=== PATIENT | female | born 1955 | race American Indian/Alaskan Native ===

== ENCOUNTER 2016-10-07 13:53 | Outpatient (CLI) | payer MEDICAID | END 2016-10-07 13:54 | disposition home or self-care (01) | DX: R92.8 Other abnormal and inconclusive findings on diagnostic imaging of breast (principal) ==

== ENCOUNTER 2016-10-10 12:37 | Day surgery (SDC) | payer MEDICAID ==
[2016-10-10] MEDS ORDERED: LACTATED RINGERS 1,000 ML IV ONE (14:08)
[2016-10-10] MEDS ORDERED: MIDAZOLAM 2 MG/2 ML VIAL IVP ONE (16:06)
[2016-10-10] MEDS ORDERED: fentaNYL 250 MCG/5 ML VIAL IVP ONE (16:06)
== END 2016-10-10 12:38 | disposition home or self-care (01) ==
PROC: 0DJD8ZZ Inspection of Lower Intestinal Tract, Via Natural or Artificial Opening Endoscopic (ICD-10-PCS; principal; 2016-10-10 12:55)
DX: Z12.11 Encounter for screening for malignant neoplasm of colon (principal); K57.30 Diverticulosis of large intestine without perforation or abscess without bleeding; Z86.010 Personal history of colon polyps; I10 Essential (primary) hypertension; K21.9 Gastro-esophageal reflux disease without esophagitis; K64.8 Other hemorrhoids; K92.1 Melena; F41.8 Other specified anxiety disorders
CPT/HCPCS: 45378; J3010; J7120

== ENCOUNTER 2016-10-11 14:21 | Outpatient (CLI) | payer MEDICAID | END 2016-10-11 14:22 | disposition home or self-care (01) | DX: R92.8 Other abnormal and inconclusive findings on diagnostic imaging of breast (principal) ==

== ENCOUNTER 2016-10-20 14:30 | Outpatient (CLI) | payer MEDICAID | END 2016-10-20 14:31 | disposition home or self-care (01) | DX: I10 Essential (primary) hypertension (principal); R73.9 Hyperglycemia, unspecified ==

== ENCOUNTER 2017-10-12 14:29 | Outpatient (CLI) | payer MEDICAID ==
[2017-10-12 17:42] LABS: BASOPHILS % (AUTO) 0.4 %; EOSINOPHILS # (AUTO) 0.3 10^3/uL (0.0-0.7); EOSINOPHILS % (AUTO) 5.2 %; HGB - HEMOGLOBIN 12.7 g/dL (12.0-16.0); LYMPHOCYTES % (AUTO) 36.8 %; MEAN CORPUSCULAR HGB CONC 32.6 g/dL (32.0-36.0); MEAN CORPUSCULAR VOLUME 91.9 fL (81.0-99.0); MEAN PLATELET VOLUME 7.9 fL (7.9-10.8); MONOCYTES # (AUTO) 0.3 10^3/uL (0.0-1.0); MONOCYTES % (AUTO) 5.7 %; NEUTROPHILS # (AUTO) 2.8 10^3/uL (1.5-6.6); NEUTROPHILS % (AUTO) 51.9 %; PLT - PLATELET COUNT 322 10^3/uL (130-450); RED BLOOD COUNT 4.23 10^6/uL (4.20-5.40); RED CELL DISTRIBUTION WIDTH 13.3 % (12.0-15.0); WHITE BLOOD COUNT 5.3 x10^3/uL (4.8-10.8)
[2017-10-12 18:16] LABS: ALBUMIN/GLOBULIN RATIO 1.4 (1.0-2.2); ALKALINE PHOSPHATASE 118 IU/L (42-121); ALT ALANINE AMINOTRANSFERASE 40 IU/L (10-60); AST ASPARTATE AMINOTRANSFERASE 29 IU/L (10-42); BILIRUBIN,TOTAL 0.5 mg/dL (0.2-1.0); BUN - BLOOD UREA NITROGEN 11 mg/dL (6-20); CALCIUM 8.9 mg/dL (8.5-10.3); CARBON DIOXIDE - CO2 27 mmol/L (21-32); CHLORIDE 103 mmol/L (101-111); CREATININE 0.8 mg/dL (0.4-1.0); GFR - MDRD 73 (>89); GLUCOSE 98 mg/dL (70-100); SODIUM 140 mmol/L (135-145); TOTAL PROTEIN 6.9 g/dL (6.7-8.2)
[2017-10-12 18:20] LABS: HB2 TOTAL 13.7 g/dL; HEMOGLOBIN A1C 0.58 g/dL
== END 2017-10-12 14:30 | disposition home or self-care (01) ==
LOC: LAB.F 14:29
PROVIDERS: ATTEND Physician Assistant Medical
DX: Z00.00 Encounter for general adult medical examination without abnormal findings (principal); R73.01 Impaired fasting glucose
CPT/HCPCS: 36415; 80053; 83036; 84443; 85025

== ENCOUNTER 2017-11-13 14:03 | Outpatient (CLI) | payer MEDICAID ==
[2017-11-13 18:02] LABS: ALBUMIN 4.1 g/dL (3.2-5.5); ALBUMIN/GLOBULIN RATIO 1.3 (1.0-2.2); BILIRUBIN,TOTAL 0.5 mg/dL (0.2-1.0); CALCIUM 9.3 mg/dL (8.5-10.3); CREATININE 0.8 mg/dL (0.4-1.0); TOTAL PROTEIN 7.2 g/dL (6.7-8.2)
== END 2017-11-13 14:04 | disposition home or self-care (01) ==
LOC: LAB.F 14:03
PROVIDERS: ATTEND Physician Assistant Medical
DX: I10 Essential (primary) hypertension (principal)
CPT/HCPCS: 36415; 80053

== ENCOUNTER 2018-02-23 13:05 | Outpatient (CLI) | payer MEDICAID ==
[2018-02-23 18:21] LABS: HB2 TOTAL 14.5 g/dL; HEMOGLOBIN A1C 0.61 g/dL
== END 2018-02-23 13:06 | disposition home or self-care (01) ==
LOC: LAB.F 13:05
PROVIDERS: ATTEND Physician Assistant Medical
DX: R73.01 Impaired fasting glucose (principal)
CPT/HCPCS: 36415; 83036

== ENCOUNTER 2018-05-04 14:56 | Outpatient (CLI) | payer MEDICAID ==
--- NOTE | 2018-05-04 15:43 | XRAY Report ---
Procedure Date: 05/04/2018 Accession Number: [id number] / [id number] Procedure: XR - Wrist 4 View LT CPT Code: FULL RESULT: EXAM: LEFT WRIST RADIOGRAPHY EXAM DATE: 05/04/2018 02:57 PM. CLINICAL HISTORY: Wrist joint pain, left. COMPARISON: None. TECHNIQUE: 3 views. FINDINGS: Bones: Normal. No fractures or bone lesions. Joints: Borderline ulnar negative variance. Soft Tissues: Normal. No soft tissue swelling. IMPRESSION: Question ulnar negative variance. RADIA
== END 2018-05-04 14:57 | disposition home or self-care (01) ==
LOC: DI 14:56
PROVIDERS: ATTEND Physician Assistant Medical
DX: M25.532 Pain in left wrist (principal)

== ENCOUNTER 2018-11-14 08:00 | Outpatient (CLI) | payer MEDICAID ==
[2018-11-14 17:56] LABS: BASOPHILS % (AUTO) 0.2 %; EOSINOPHILS # (AUTO) 0.3 10^3/uL (0.0-0.7); EOSINOPHILS % (AUTO) 3.9 %; HGB - HEMOGLOBIN 13.4 g/dL (12.0-16.0); LYMPHOCYTES # (AUTO) 2.4 10^3/uL (1.5-3.5); LYMPHOCYTES % (AUTO) 36.2 %; MEAN CORPUSCULAR HEMOGLOBIN 29.9 pg (27.0-31.0); MEAN CORPUSCULAR HGB CONC 32.8 g/dL (32.0-36.0); MEAN CORPUSCULAR VOLUME 91.2 fL (81.0-99.0); MEAN PLATELET VOLUME 8.1 fL (7.9-10.8); MONOCYTES # (AUTO) 0.4 10^3/uL (0.0-1.0); MONOCYTES % (AUTO) 5.9 %; NEUTROPHILS # (AUTO) 3.6 10^3/uL (1.5-6.6); NEUTROPHILS % (AUTO) 53.8 %; PLT - PLATELET COUNT 335 10^3/uL (130-450); RED BLOOD COUNT 4.47 10^6/uL (4.20-5.40); RED CELL DISTRIBUTION WIDTH 13.4 % (12.0-15.0); WHITE BLOOD COUNT 6.7 x10^3/uL (4.8-10.8)
[2018-11-14 18:03] LABS: ALBUMIN 4.2 g/dL (3.2-5.5); ALBUMIN/GLOBULIN RATIO 1.4 (1.0-2.2); BILIRUBIN,TOTAL 0.8 mg/dL (0.2-1.0); CALCIUM 9.6 mg/dL (8.5-10.3); CREATININE 0.8 mg/dL (0.4-1.0); TOTAL PROTEIN 7.2 g/dL (6.7-8.2)
== END 2018-11-14 23:59 | disposition home or self-care (01) ==
LOC: LAB.F 08:00
PROVIDERS: ATTEND Physician Assistant Medical
DX: I10 Essential (primary) hypertension (principal)
CPT/HCPCS: 36415; 80053; 85025

== ENCOUNTER 2019-06-02 20:39 | Emergency (ER) | payer MEDICAID ==
[2019-06-02] MEDS ORDERED: MECLIZINE 12.5 MG TABLET PO STA (21:03)
[2019-06-02] MEDS ORDERED: CHERRY SYRUP 10 ML UDC PO ONE (21:03)
[2019-06-02] MEDS ORDERED: DEXAMETHASONE 10 MG/ML VIAL PO STA (21:03)
--- NOTE | 2019-06-02 21:06 | ED Physician Documentation ---
History of Present Illness - Stated complaint Stated Complaint: VERTIGO/NAUSEA - Chief complaint Chief Complaint: Neuro - History obtained from History obtained from: Patient, Friend - History of Present Illness Timing: How many days ago (3) - Additonal information Additional information: 63-year-old female has developed acute dizziness 3 days ago she has dizziness when she turns her head too fast she has more dizziness when she turns her head to the right than the left she is had some nausea and vomiting today her symptoms are worse today than they were 3 days ago. She feels that she needs to be evaluated today and she has had her boyfriend bring her to the emergency department. She states she is vomited twice she has been able to hold fluids down. Review of Systems Constitutional: denies: Fever, Chills, Fatigue Eyes: denies: Decreased vision Ears: reports: Other (Fullness in the left ear prior to onset of symptoms). denies: Ear pain Nose: denies: Rhinorrhea / runny nose, Congestion Throat: denies: Dental pain / toothache, Sore throat Cardiac: denies: Chest pain / pressure, Palpitations Respiratory: denies: Dyspnea, Cough GI: reports: Nausea, Vomiting. denies: Abdominal Pain : denies: Dysuria, Frequency PD PAST MEDICAL HISTORY - Past Medical History Cardiovascular: Hypertension, High cholesterol Respiratory: None Endocrine/Autoimmune: None GI: GERD : None HEENT: Other Psych: Depression Musculoskeletal: None - Present Medications Home Medications: Ambulatory Orders Medication Instructions Recorded Confirmed Acyclovir 400 mg PO BID 10/10/16 10/10/16 Atorvastatin Calcium [Lipitor] 80 mg PO DAILY 10/10/16 10/10/16 Citalopram Hydrobromide [Celexa] 40 mg PO DAILY 10/10/16 10/10/16 Lisinopril 20 mg PO DAILY 10/10/16 10/10/16 Omeprazole [PriLOSEC] 20 mg PO DAILY 10/10/16 10/10/16 hydroCHLOROthiazide 25 mg PO DAILY 10/10/16 10/10/16 [Hydrochlorothiazide] Meclizine [Antivert] 25 mg PO Q6H PRN #20 tablet 06/02/19 - Allergies Allergies/Adverse Reactions: Allergies Allergy/AdvReac Type Severity Reaction Status Date / Time No Known Drug Allergies Allergy Verified 01/23/17 13:45 PD ED PE NORMAL - Vitals Vital signs reviewed: Yes (hypertensive) - General General: Alert and oriented X 3, No acute distress, Well developed/nourished - HEENT HEENT: Atraumatic, PERRL, EOMI, Ears normal, Moist mucous membranes, Pharynx benign, Dentition benign, Other (Nystagmus 3 beats bilaterally and sy mmetrically) - Neck Neck: Supple, no meningeal sign, No bony TTP - Cardiac Cardiac: RRR, No murmur - Respiratory Respiratory: No respiratory distress, Clear bilaterally - Abdomen Abdomen: Soft, Non tender - Back Back: No CVA TTP, No spinal TTP - Derm Derm: Normal color, Warm and dry, No rash - Extremities Extremities: No deformity, No edema - Neuro Neuro: Alert and oriented X 3, greens laborer 2-12 intact, No motor deficit, No sensory deficit, Normal speech Eye Opening: Spontaneous Motor: Obeys Commands Verbal: Oriented GCS Score: 15 - Psych Psych: Normal mood, Normal affect Results - Vitals Vitals: Vital Signs - 24 hr 06/02/19 20:43 Temperature 36.4 C L Heart Rate 81 Respiratory 18 Rate Blood Pressure 132/79 H O2 Saturation 100 Oxygen O2 Source Room air Procedures - IVC sono (time) 2100 Bedside IVC sono: IVC measures (cm) (1.34), Dehydration (less than one liter deficit) PD MEDICAL DECISION MAKING - ED course Complexity details: reviewed results, re-evaluated patient, considered differential, d/w patient, d/w family ED course: 63-year-old female with bilateral nystagmus dizziness nausea and vomiting without propelling vertigo appears to have acute labyrinthitis and she is adm inistered meclizine 25 mg orally and dexamethasone 10 mg orally.We will provide the patient instructions on modified Nba maneuver as well.The patient does have some dehydration and she is able to hold down oral fluids. Her dehydration is mild on interrogation of her inferior vena cava. Departure - Departure Disposition: 01 Home, Self Care Clinical Impression: Labyrinthitis Qualifiers: Laterality: bilateral Qualified Code(s): H83.03 - Labyrinthitis, bilateral Condition: Stable Instructions: ED Labyrinthitis Follow-Up: Olivia Abdul PA-C [Primary Care Provider] - Prescriptions: Meclizine [Antivert] 25 mg PO Q6H PRN #20 tablet PRN Reason: Dizziness
[2019-06-02 21:56] VITALS: BP 115/78
== END 2019-06-02 21:58 | disposition home or self-care (01) ==
LOC: ED 20:39
DX: H83.03 Labyrinthitis, bilateral (principal); R11.2 Nausea with vomiting, unspecified; E86.0 Dehydration; I10 Essential (primary) hypertension
CPT/HCPCS: 99282; 99284; A9270

== ENCOUNTER 2019-09-09 15:38 | Outpatient (CLI) | payer MEDICAID ==
[2019-09-09 17:25] LABS: ALBUMIN 4.1 g/dL (3.2-5.5); ALBUMIN/GLOBULIN RATIO 1.5 (1.0-2.2); BILIRUBIN,TOTAL 0.6 mg/dL (0.2-1.0); CALCIUM 9.2 mg/dL (8.5-10.3); CREATININE 0.8 mg/dL (0.4-1.0); TOTAL PROTEIN 6.9 g/dL (6.7-8.2)
[2019-09-09 17:47] LABS: HB2 TOTAL 12.4 g/dL; HEMOGLOBIN A1C 0.57 g/dL; HEMOGLOBIN A1C % 6.4 % (4.6-6.2)
== END 2019-09-09 15:39 | disposition home or self-care (01) ==
LOC: LAB.S 15:38
PROVIDERS: ATTEND Physician Assistant Medical
DX: R73.01 Impaired fasting glucose (principal)
CPT/HCPCS: 36415; 80053; 83036

== ENCOUNTER 2020-04-09 12:49 | Outpatient (CLI) | payer MEDICAID ==
--- NOTE | 2020-04-09 13:17 | CT Report ---
PROCEDURE: HEAD WO INDICATIONS: Dizziness, vertigo TECHNIQUE: Noncontrast 4.5 mm thick angled axial sections acquired from the foramen magnum to the vertex. For r adiation dose reduction, the following was used: automated exposure control, adjustment of mA and/or kV according to patient size. COMPARISON: None. FINDINGS: Image quality: Excellent. CSF spaces: Basal cisterns are patent. No extra-axial fluid collections. Ventricles are normal in size and shape. Brain: No midline shift. No intracranial masses or hemorrhage. Farfan-white matter interface is norm al. Skull and face: Calvarium and visualized facial bones are intact, without suspicious lesions. Sinuses: Visualized sinuses and mastoids are clear. IMPRESSION: No acute intracranial finding. Reviewed by: Abel Haskins MD on 04/09/2020 1:15 PM PDT Approved by: Abel Haskins MD on 04/09/2020 1:15 PM PDT Station ID: [id number]
== END 2020-04-09 12:50 | disposition home or self-care (01) ==
LOC: DI 12:49
PROVIDERS: ATTEND Registered Nurse
DX: H81.20 Vestibular neuronitis, unspecified ear (principal)
CPT/HCPCS: 70450

== ENCOUNTER 2020-04-21 14:50 | Outpatient (CLI) | payer MEDICAID ==
[2020-04-21 16:02] VITALS: BP 118/80
--- NOTE | 2020-04-21 16:02 | SLEEP CARE CONSULTATION ---
Information from patient questionnaire entered by Red Galeana. I have reviewed and concur with the information entered by Red Galeana. This document represents the service I personally performed and the decisions made by me, Faiza Jones ARNP. History of Present Illness Service Date and Time: 04/21/2020 1450 Reason for Visit: New patient Chief Complaint: reports: Insomnia, Unrefreshed sleep, Snoring, Excessive daytime sleepiness, Observed pauses in breathing, Fatigue, Frequent awakenings at night, Other (Hard time awakening daily) Duration of Symptoms: Years Usual bedtime: 12 AM - 3 AM or not at all Time it takes to fall asleep: Several hours Snores at night: Yes Observed to quit breathing while asleep: Yes Sleeps alone due to snoring: Yes Number of times waking at night: 4 Reasons for waking at night: reports: Choking, Snoring, Bathroom, Other (jerk when going to sleep or waking up occasionally). denies: Gasping for air, Pain Toss, Turn, or Twitch while sleeping: Yes Recalls having dreams: Yes Usually gets out of bed at: Noon or later Feels refreshed in the morning: No Morning headache: Yes (sometimes, 3-4 days a week; last about hour and resolves with caffiene) Sleepy or fatigued during the day: Yes Ever fallen asleep while driving: Yes (dozing off on long trips, audio books helped to stay awake) Takes day naps: Yes (30 minutes to several hours) Dreams during day naps: No Prior sleep studies: No Additional HPI information: Patient presents with complaints of insomnia, she cannot get to sleep before 2- 3 in the morning if she is able to go to sleep. She has frequent awakenings and awakens very tired every day. She sleeps until afternoon, sometimes as much as 12-14 hours but states she never feels rested. Her significant other has told her she snores loudly and does not sleep in the same room. He has also told her she has pauses in breathing, jerky movements of her hands when going to sleep and has sometimes woke up with a jerk. She states she has been dealing with vertigo for about the last year and complains of being foggy minded. She used to hike/walk 2 miles a day but is not unable to due to the vertigo. She saw a neurologist for the vertigo and he recommended physical therapy which she was doing but stopped when her boyfriend started having seizures. She know she has gained some weight due to decrease in activity. Her s/o is going to have bariatric surgery and they are planning a diet change to help him (and her) lose weight. - Parasomnia Symptoms Ever been unable to move upon waking from sleep: No Walks in sleep: No Talks in sleep: No (when a kid, not recently) Ever acted out dreams in sleep: Yes Ever felt weak in the knees when startled or emotional: No Bothered by creepy, crawly, restless sensations in legs: Yes (hands and feet twitch during sleep; restless feeling in legs 2-3 times a wk) Problems with memory or concentration: Yes Subjective Initial [place] Sleepiness Scale score: 12 (in 2019) Past Medical History Past Medical History: reports: Hypertension (gastroesophageal reflux), Arthritis, Depression, GERD. denies: Congestive Heart Failure, Diabetes (possibly pre-diabetic), Stroke, Coronary Heart Disease, Insulin resistance, Arrythmia, Hypothyroidism, Anemia, Anxiety, Asthma, Mood disorder, Attention deficit Social History The patient's occupation is a retired. Patient is Single and lives in [place]. Have you smoked in the past 12 months: No Alcohol use: Yes Alcohol amount and frequency: 3-4 times a year-rarely Caffeine use: Yes Caffeine amount and frequency: 1 stay awake tablet (OTC tablet of caffiene) daily Family History Family history of sleep disordered breathing: Yes (Father) Family Hx Sleep Apnea: Father: Snoring Allergies and Home Medications Drug allergies reviewed: Yes (NKDA) Home medication list reviewed: Yes (see list) Review of Systems Cardiovascular: reports: high blood pressure. denies: palpitations, chest pain, irregular heart rate or pulse, leg or foot swelling, have to sleep sitting up Respiratory: reports: chronic cough (from post nasal drip). denies: shortness of breath Gastrointestinal: reports: heartburn. denies: difficulty swallowing Neurological: reports: headaches, gait or balance problems. denies: seizure, head trauma, disorientation, speech dysfunction Psychiatric: reports: depression. denies: anxiety, mood disorder, claustrophobia Ear/Nose/Throat: reports: nasal congestion (allergies), dry mouth/throat (only when she snores), wisdom teeth removed, other (post nasal drip). denies: sinus problems, nose bleeds, hoarseness, injury to nose, tonsillectomy Endocrine: reports: sluggishness, excessive thirst. denies: thyroid disease Musculoskeletal: reports: joint pain, neck pain, back pain Immunologic: reports: allergies to food or environment (seasonal) Physical Exam Blood Pressure: 118/80 Cuff size: long Heart Rate: 74 O2 Saturation: 100 Height: 5 ft 5 in Weight: 187 lb 12.8 oz Body Mass Index: 31.2 BMI Classification: Obese Neck circumference: 16 (inches) HEENT: No craniofacial malformation Nostrils: patent to airflow Turbinates: normal Septum: midline Mouth and throat: normal Uvula visualization: 50% Mallampati Class II Tongue: normal in size Tonsils: small Chin and jaw: normal size and position Neck: normal w/o lymphadenopathy or thyromegaly Heart: regular rate and rhythm Lungs: clear bilaterally Impression and Plan 1. Suspected Obstructive Sleep Apnea-Hypopnea Syndrome, as suggested by a history of loud and irregular snoring, observed cessation of breath while asleep, gasping or choking in sleep, morning headache, frequent awakening during the night, unrefreshed sleep, cognitive impairment, and excessive daytime sleepiness. Narrow oropharynx and obesity are common predisposing factors for obstructive sleep apnea-hypopnea syndrome. Patient also has a history of hyp ertension and depression. I recommend proceeding to polysomnography to confirm the diagnosis and to assess severity. If the patient has significant sleep disordered breathing, a manual CPAP titration study will also be performed to find the optimal treatment pressure. I informed the patient of what the sleep studies involve and after some discussion, obtained agreement to proceed. The pathophysiology of obstructive sleep apnea-hypopnea syndrome was discussed with the patient and health risks of cardiovascular and cerebrovascular disease if not treated. AASM brochure for obstructive sleep apnea-hypopnea syndrome given and reviewed. Risks of drowsy driving discussed in detail and patient advised to avoid long distance driving and to cost recovery technician at the first sign of drowsiness. Patient agreed to plan. * Schedule polysomnography +- manual CPAP titration study. * Avoid long distance driving or driving when feeling sleepy. * Avoid alcohol, sedative and muscle relaxant around bedtime. * Attempt to lose weight. * Review instructions provided by trained office staff on how to prepare for the sleep study. * Return for follow-up after sleep study completed. Visit Type: In Office Time Spent with Patient (minutes): 37 Provider Statement: I spent 100% of the Face to Face Visit with the patient with greater than 50% spent counseling the patient and coordination of care.
== END 2020-04-21 14:51 | disposition home or self-care (01) ==
LOC: SC 14:50
PROVIDERS: ATTEND Nurse Practitioner Family
DX: G47.10 Hypersomnia, unspecified (principal); R06.83 Snoring; R06.81 Apnea, not elsewhere classified; R53.83 Other fatigue; G47.8 Other sleep disorders; E66.9 Obesity, unspecified; Z68.31 Body mass index [BMI] 31.0-31.9, adult; I10 Essential (primary) hypertension
CPT/HCPCS: 99204; 99212

== ENCOUNTER 2020-05-19 10:18 | Outpatient (CLI) | payer MEDICAID ==
[2020-05-19 15:29] LABS: CALCIUM 10.2 mg/dL (8.5-10.3); CREATININE 0.8 mg/dL (0.4-1.0)
[2020-05-19 20:29] LABS: HEMOGLOBIN A1c% 6.1 % (4.27-6.07)
== END 2020-05-19 10:19 | disposition home or self-care (01) ==
LOC: LAB.S 10:18
PROVIDERS: ATTEND Registered Nurse
DX: R73.01 Impaired fasting glucose (principal)
CPT/HCPCS: 36415; 80048; 83036

== ENCOUNTER 2020-06-03 20:30 | Outpatient (CLI) | payer MEDICAID | END 2020-06-03 23:59 | disposition home or self-care (01) | LOC: SC 20:30 | PROVIDERS: ATTEND Nurse Practitioner Family | DX: G47.33 Obstructive sleep apnea (adult) (pediatric) (principal) | CPT/HCPCS: 95806 ==

== ENCOUNTER 2020-06-18 16:28 | Outpatient (CLI) | payer MEDICAID ==
--- NOTE | 2020-06-18 16:54 | SLEEP CARE CONSULTATION ---
Information from patient questionnaire entered by Red Galeana. I have reviewed and concur with the information entered by Red Galeana. This document represents the service I personally performed and the decisions made by me, Faiza Jones ARNP. History of Present Illness Service Date and Time: 06/18/20201627 Initial [place] Sleepiness Scale score: 12 (in 2020) Current [place] Sleepiness Scale score: 8 Additional HPI information: VIKKI SCHNEIDER returns for follow up and results of the recently performed home sleep study. She was found to have mild obstructive sleep apnea with an average AHI 7.8 and a nick oxygen saturation of 69.3%. Her supine AHI was 21.1 and her non-supine AHI was 5.1. I explained the pathophysiology behind obstructive sleep apnea. We then spent quite a bit of time discussing different treatment options. For mild obstructive sleep apnea, surgery and oral appliance are alternatives to nasal CPAP therapy but in moderate or severe cases, nasal CPAP is the most effective and reliable treatment. Because apnea is primarily in supine position, then positional management therapy could be effective. Methods discussed such as positioning with pillows, using a T-shirt with tennis balls in the back, and sh own commercial products that have a pillow format on back to prevent supine sleep. I reviewed the impact of weight changes on sleep apnea and strongly recommended losing weight. After some discussion, the patient opted to go with the nasal CPAP therapy. Nasal autoCPAP set at 4-15 cmH20 will be ordered with rationale explained. A manual titration study will be ordered if unable to find optimal pressure with office adjustments. I explained how CPAP machine works with sample devices [employer] Dream[employer] and [id number] and what to expect when using the machine. Using CPAP every night in order to get used to it was emphasized. Patient advised to put CPAP mask on before getting into bed so as not to fall asleep without CPAP. To assist acclimation to CPAP use, it could also be used for a short time during day while reading or watching TV. The patient was instructed to call the CPAP supplier to discuss any mechanical problem that may occur. If the mask given is uncomfortable or is difficult to keep on through the night even with adjustment, contact the CPAP supplier as many will replace with another mask style if notified before 30 days. If snoring or perceives is not getting enough air or too much air from the machine, notify this office. AASM patient education PAP tips reviewed and given to patient. Patient counseled not drink alcohol less than 4 hours before bedtime as it can increase snoring and apnea. Patient was cautioned about risks of drowsy driving until sleepiness symptoms resolve. Sleep Study - Results Type of Sleep Study: Home sleep study Prior sleep studies: No Polysomnography/Home Sleep Study results: SLEEP TIME AND EFFICIENCY: The sleep study recording began at 03:56:25 AM and ended at 12:22:04 PM. Total recording time was 505.6 minutes. The total sleep time was 451.5 minutes. The sleep efficiency was 89.3 percent. The patient spent 76.6 minutes supine, and spent 374.9 minutes non-supine. The patients own estimate of sleep time was 8.40 hours. RESPIRATORY DATA: The AHI in this report is indexed to sleep time based on actigraphy. The AASM defines this as MELLISA. The AHI on this type 3 Home Sleep Study may understate the AHI determined on a type 1 or 2 study, since EEG is not monitored resulting in the inability to score non-desaturating hypopneas. Based on 4% Calculation: The AHI 4% calculation of 7.8 per hour of recording time was based on a total of 14 scored apneas and 45 scored hypopneas with 4% desaturations. Supine AHI4%: 21.1 per hour. Non-supine AHI4%: 5.1 per hour. Oxygen Summary: Patient's baseline O2 saturation was 95.2 %. The patient spent 3.7 minutes at an oxygen saturation less than 90%, and 1.2 minutes less than 85%. The desaturation index was 11.2 events per hour sleep time. The lowest saturation was 69.3 %. SNORING: The percent of the study time spent snoring was 0.0 %. The Snoring Count was 0 . The Snoring Index was 0.0 . PULSE RATE REVIEW: The mean heart rate was 67 beats per minute. The rate ranged from a low of 40 to a high of 92 beats per minute. DIAGNOSIS CODE: Obstructive sleep apnea (ICD-10 G47.33) This patient has mild obstructive sleep apnea associated with mild hypoxemia. Allergies and Home Medications Known drug allergies: No Home medication list reviewed: Yes (no changes) Review of Systems Review of systems same as previous: Yes (no changes) Weight loss over past 5 years: 25 in last 3 months Physical Exam Heart Rate: 82 O2 Saturation: 98 Height: 5 ft 5 in Weight: 175 lb Body Mass Index: 29.1 BMI Classification: Overweight Impression and Plan 1. Obstructive Sleep Apnea-Hypopnea Syndrome, mild, with lowest oxygen saturation of 69.3%. Obviously this is the cause of the patients symptoms of unrefreshed sleep, and excessive daytime sleepiness. Positive pressure therapy could benefit her hypertension, acid reflux, depression and reduce risk of diabetes. As mentioned above, the patient will be started on nasal autoCPAP therapy with pressure set at 4-15 cmH2O. A manual titration study will be completed if unable to find optimal treatment pressure with office adjustments. Compliance guidelines also reviewed. A copy of compliance guidelines will be given for reference at check out. Because the apnea is more severe supine, I instructed to avoid sleeping supine using pillow positioning until able to start CPAP use. * Nasal auto CPAP therapy, pressure at 4-15 cm H2O. * Attempt to lose weight. * Avoid alcohol consumption near bedtime. * Avoid supine sleep until using CPAP. * The patient is again cautioned about driving until sleepiness completely resolves. * Return one month after CPAP obtained. I will assess response to therapy and compliance at that time. Counseling Topics: Weight loss health impact Visit Type: In Office Time Spent with Patient (minutes): 23 Provider Statement: I spent 100% of the Face to Face Visit with the patient with greater than 50% spent counseling the patient and coordination of care.
== END 2020-06-18 16:29 | disposition home or self-care (01) ==
LOC: SC 16:28
PROVIDERS: ATTEND Nurse Practitioner Family
DX: G47.33 Obstructive sleep apnea (adult) (pediatric) (principal); E66.3 Overweight; Z68.29 Body mass index [BMI] 29.0-29.9, adult
CPT/HCPCS: 99212; 99213

== ENCOUNTER 2020-06-23 08:00 | Outpatient (CLI) | payer MEDICAID | END 2020-06-23 23:59 | disposition home or self-care (01) | LOC: LAB.R 08:00 | PROVIDERS: ATTEND Physician Assistant | DX: N39.0 Urinary tract infection, site not specified (principal); R30.0 Dysuria | CPT/HCPCS: 87086 ==

== ENCOUNTER 2020-08-26 14:46 | Outpatient (CLI) | payer MEDICAID ==
--- NOTE | 2020-08-26 15:14 | SLEEP CARE CONSULTATION ---
Information from patient questionnaire entered by Gayle Florez. I have reviewed and concur with the information entered by Gayle Florez. This document represents the service I personally performed and the decisions made by me, Faiza Jones ARNP. History of Present Illness Service Date and Time: 08/26/2020 1446 Previous diagnosis: Mild, Obstructive Sleep Apnea-Hypopnea Syndrome AHI: 7.8 (in 2019) Reason for follow up: first compliance Equipment type: CPAP Equipment obtained from: [employer] (has received first supplies, feels they are doing really good) Mask style: Nasal (over the nose) Backup mask available: No (will keep mask when replaced later) Last cushion change: 2 weeks Prior sleep studies: Yes Year and Where: 2019 - [facility] Sleep Type of Sleep Study: Home sleep study HPI additional information: VIKKI SCHNEIDER was diagnosed to have mild, AHI 7.8, obstructive sleep apnea- hypopnea syndrome and returned today for CPAP therapy first compliance follow- up. CPAP Compliance Data - Data Reviewed with Patient Average duration of nightly device use: 9 hr 9 min Compliance rate %: 93 Current pressure setting (cmH2O): 4-15 Humidity settin Average residual AHI: 0.5 Central apnea: 0.3 Obstructive apnea: 0.2 Subjective Missed days of use due to: reports: illness, other (power outage) Patient concerns: reports: nasal congestion, dry mouth, nose, throat. denies: aerophagia, mask discomfort, air blowing in eyes, mask leak noise, condensation in mask/hose, epistaxis, other Observed to snore while using device: No Current pressure setting perceived as: comfortable On therapy, patient: reports: sleeping better, awakening more refreshed, being more awake and alert during the day, more rested overall. denies: drowsiness while driving Initial [place] Sleepiness Scale score: 12 (in 2020) Current [place] Sleepiness Scale score: 7 Allergies and Home Medications Drug allergies reviewed: Yes (NKDA) Home medication list reviewed: Yes (no changes) Review of Systems Review of systems same as previous: Yes (no changes) Physical Exam Heart Rate: 74 O2 Saturation: 100 Height: 5 ft 5 in Weight: 179 lb Body Mass Index: 29.7 BMI Classification: Overweight Impression and Plan 1. Obstructive Sleep Apnea-Hypopnea Syndrome, mild, with good treatment compliance and excellent apnea control. On CPAP therapy, the patient has better sleep quality and is more rested overall. She has had some nasal congestion and oral dryness. Nasal congestion can be reduced with increasing the CPAP humidity as shown on sample device. The heated hose can be adjusted higher if condensation with higher humidity setting. Saline nasal spray sample was also given to use prior to CPAP to clear nasal secretions and wash off any nasal allergens to facilitate nasal breathing. In addition, a steamy shower before bed will often assist nasal drainage. Increasing the humidity will also reduce the oral/nasal dryness. I will adjust her pressure to 7-13 cm H2O to reflect the pressures of the median at 7.5 cm H2O, 95% average 12.8 cm H2O and max pressure at 13.9 cm H2O. Patient's apnea severity and rationale for treatment to reduce apnea, improve sleep quality and reduce cardiovascular and cerebrovascular events was reviewed. I also reviewed the benefit of consistent device use of CPAP for hypertension, gastric reflux, and depression. * Change autoCPAP pressure to 7-13 cmH2O * Notify me if snoring with mask or feeling that the pressure is too much or too little * Attempt to lose weight * Call this office if any problems using CPAP * Return for follow up in 1-2 months , or sooner if concerns arise Counseling Topics: Spare mask, Weight loss health impact Visit Type: In Office Time Spent with Patient (minutes): 20 Provider Statement: I spent 100% of the Face to Face Visit with the patient with greater than 50% spent counseling the patient and coordination of care.
== END 2020-08-26 14:47 | disposition home or self-care (01) ==
LOC: SC 14:46
PROVIDERS: ATTEND Nurse Practitioner Family
DX: G47.33 Obstructive sleep apnea (adult) (pediatric) (principal); E66.3 Overweight; Z68.29 Body mass index [BMI] 29.0-29.9, adult
CPT/HCPCS: 99212; 99213

== ENCOUNTER 2020-08-28 14:51 | Outpatient (CLI) | payer MEDICAID ==
[2020-08-28 19:53] LABS: BASOPHILS % (AUTO) 0.3 %; EOSINOPHILS # (AUTO) 0.2 10^3/uL (0.0-0.7); HGB - HEMOGLOBIN 12.6 g/dL (12.0-16.0); LYMPHOCYTES # (AUTO) 1.9 10^3/uL (1.5-3.5); LYMPHOCYTES % (AUTO) 28.6 %; MEAN CORPUSCULAR HEMOGLOBIN 29.5 pg (27.0-31.0); MEAN CORPUSCULAR HGB CONC 31.3 g/dL (32.0-36.0); MEAN CORPUSCULAR VOLUME 94.4 fL (81.0-99.0); MEAN PLATELET VOLUME 9.7 fL (7.9-10.8); MONOCYTES # (AUTO) 0.3 10^3/uL (0.0-1.0); MONOCYTES % (AUTO) 4.9 %; NEUTROPHILS # (AUTO) 4.2 10^3/uL (1.5-6.6); NEUTROPHILS % (AUTO) 63.1 %; PLT - PLATELET COUNT 356 10^3/uL (130-450); RED BLOOD COUNT 4.27 10^6/uL (4.20-5.40); RED CELL DISTRIBUTION WIDTH 13.2 % (12.0-15.0); WHITE BLOOD COUNT 6.7 x10^3/uL (4.8-10.8)
[2020-08-28 20:23] LABS: ALBUMIN 4.4 g/dL (3.2-5.5); ALBUMIN/GLOBULIN RATIO 1.5 (1.0-2.2); ALKALINE PHOSPHATASE 130 IU/L (42-121); ALT ALANINE AMINOTRANSFERASE 44 IU/L (10-60); AST ASPARTATE AMINOTRANSFERASE 27 IU/L (10-42); BILIRUBIN,TOTAL 0.8 mg/dL (0.2-1.0); BUN - BLOOD UREA NITROGEN 21 mg/dL (6-20); CALCIUM 9.8 mg/dL (8.5-10.3); CARBON DIOXIDE - CO2 28 mmol/L (21-32); CHLORIDE 101 mmol/L (101-111); CHOL/HDL RATIO 3.2 (<4.4); CHOLESTEROL 131 mg/dL; CREATININE 0.7 mg/dL (0.4-1.0); GLUCOSE 105 mg/dL (70-100); HDL CHOLESTEROL 41 mg/dL; LDL CHOLESTEROL,CALCULATED 68 mg/dL; LDL/HDL RATIO 1.7 (<4.4); SODIUM 140 mmol/L (135-145); TOTAL PROTEIN 7.3 g/dL (6.7-8.2); VLDL CHOLESTEROL 22 mg/dL
== END 2020-08-28 14:52 | disposition home or self-care (01) ==
LOC: LAB.S 14:51
PROVIDERS: ATTEND Registered Nurse
DX: R73.01 Impaired fasting glucose (principal); K21.9 Gastro-esophageal reflux disease without esophagitis; F34.1 Dysthymic disorder; E78.00 Pure hypercholesterolemia, unspecified; I10 Essential (primary) hypertension; N39.0 Urinary tract infection, site not specified; R30.0 Dysuria
CPT/HCPCS: 36415; 80053; 80061; 83721; 84443; 85025; 87086

== ENCOUNTER 2020-09-30 12:46 | Outpatient (CLI) | payer MEDICAID ==
--- OUTSIDE RECORDS SUMMARY | 2020-09-30 12:50 | EXTERNAL MEDICAL SUMMARY RPT | Continuity of Care Document ---
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 2020-08-18 00:00:00 LIPID SCREEN, FASTING [facility] 2020-08-18 00:00:00 TSH [facility] 2020-08-18 00:00:00 CBC W/Diff/Plt [facility] 2020-08-28 14:51 PURE HYPERCHOLESTEROLEMIA, [facility] UNSPECIFIED 2020-08-28 14:51 DYSTHYMIC DISORDER [facility] 2020-08-28 14:51 ESSENTIAL (PRIMARY) [facility] HYPERTENSION 2020-08-28 14:51 GASTRO-ESOPHAGEAL REFLUX [facility] DISEASE WITHOUT ESOPHAGITIS 2020-08-28 14:51 IMPAIRED FASTING GLUCOSE [facility] Allergies date description facility No Known Drug Allergies [facility] Medications date description facility 2020-07-21 00:00:00 [facility] 2020-07[facility]21 [facility] OMEPRAZOLE [facility] 2020-07-21 00:00:00 OMEPRAZOLE [facility] Procedures date description facility 2020-08-18 00:00:00 TSH WITH REFLEX TO FT4 [facility] date description facility 2020-08-18 00:00:[address] [facility] date description facility 2020-08-18 00:00:00 LIPID SCREEN, FASTING [facility] date description facility 2020-08-18 00:00:00 TSH [facility] date description facility 2020-08-18 00:00:00 CBC W/Diff/Plt [facility] date description facility 2020-08-18 00:00:00 [facility] Results Social History date description facility [id number]
--- NOTE | 2020-09-30 13:36 | SLEEP CARE CONSULTATION ---
Information from patient questionnaire entered by Gayle Florez. I have reviewed and concur with the information entered by Gayle Florez. This document represents the service I personally performed and the decisions made by , Faiza Jones ARNP. History of Present Illness Service Date and Time: 09/30/2020 1246 Previous diagnosis: Mild, Obstructive Sleep Apnea-Hypopnea Syndrome AHI: 7.8 (in 2019) Reason for follow up: one month Equipment type: CPAP Equipment obtained from: [employer] (getting supplies as needed) Mask style: Nasal ([place]) Backup mask available: Yes (other mask) Last cushion change: 1 month Prior sleep studies: Yes Year and Where: 2019 - [facility] Type of Sleep Study: Home sleep study HPI additional information: VIKKI SCHNEIDER was diagnosed to have mild, AHI 7.8, obstructive sleep apnea- hypopnea syndrome and returned today for CPAP therapy one month pressure change follow-up. CPAP Compliance Data - Data Reviewed with Patient Average duration of nightly device use: 9 hr 22 min Compliance rate %: 97 Current pressure setting (cmH2O): 7-13 Humidity settin Average residual AHI: 0.9 Central apnea: 0.6 Obstructive apnea: 0.1 Subjective Missed days of use due to: reports: other (power outage) Patient concerns: reports: mask discomfort (wants to try a nasal pillows mask, is working with DME to get with next shipment of supplies), air blowing in eyes (only with certain movements), dry mouth, nose, throat. denies: aerophagia, mask leak noise, condensation in mask/hose, nasal congestion, epistaxis Observed to snore while using device: No Current pressure setting perceived as: comfortable On therapy, patient: reports: sleeping better, being more awake and alert during the day, more rested overall. denies: drowsiness while driving Initial [place] Sleepiness Scale score: 12 (in 2020) Current [place] Sleepiness Scale score: 7 Allergies and Home Medications Drug allergies reviewed: Yes (NKDA) Home medication list reviewed: Yes (no changes) Review of Systems Review of systems same as previous: Yes (no changes) Physical Exam Heart Rate: 66 O2 Saturation: 99 Height: 5 ft 5 in Weight: 184 lb Body Mass Index: 30.6 BMI Classification: Obese Impression and Plan 1. Obstructive Sleep Apnea-Hypopnea Syndrome, mild, with good treatment compliance and excellent apnea control. On CPAP therapy, the patient has better sleep quality and is more rested overall. She continues to have mouth dryness in the morning but finds herself sleeping with her mouth open. Her humidity is set at 6 on her machine. I advised her to increase the humidity setting by 1. Oral dryness can be reduced by adjusting humidity setting higher or heated hose lower or by adjusting both settings. Verbal instructions given on how to change humidity and heated hose settings with rationale explaining why to change. I also talked to patient about using a chin strap to train her to keep her mouth closed while sleeping. She is not sure she is willing to put another strap on her head at this time and will think about this and try other ways to keep her mouth closed while asleep. She still wants to try the nasal pillows mask but was unable to obtain one due to her DME being out of the style she needed. She was encouraged to call them back before her next shipment of supplies to request the nasal pillow style mask in her size. Patient's apnea severity and rationale for treatment to reduce apnea, improve sleep quality and reduce cardiovascular and cerebrovascular events was reviewed. I also reviewed the benefit of consistent device use of CPAP for hypertension, gastric reflux and depression. * Continue auto CPAP pressure at 7-13 cmH2O * Patient will talk to DME about changing to nasal pillows mask * Notify me if snoring with mask or feeling that the pressure is too much or too little * Continue to lose weight * Call this office if any problems using CPAP * Return for follow up in 3 months, or sooner if concerns arise Counseling Topics: Spare mask, Weight loss health impact Visit Type: In Office Time Spent with Patient (minutes): 25 Provider Statement: I spent 100% of the Face to Face Visit with the patient with greater than 50% spent counseling the patient and coordination of care.
== END 2020-09-30 12:47 | disposition home or self-care (01) ==
LOC: SC 12:46
PROVIDERS: ATTEND Nurse Practitioner Family
DX: G47.33 Obstructive sleep apnea (adult) (pediatric) (principal); E66.9 Obesity, unspecified; Z68.30 Body mass index [BMI] 30.0-30.9, adult
CPT/HCPCS: 99212; 99213

== ENCOUNTER 2020-12-30 12:34 | Outpatient (CLI) | payer MEDICAID ==
--- NOTE | 2020-12-30 13:18 | SLEEP CARE CONSULTATION ---
Information from patient questionnaire entered by Gayle Florez. I have reviewed and concur with the information entered by Gayle Florez. This document represents the service I personally performed and the decisions made by , Faiza Jones ARNP. History of Present Illness Service Date and Time: 12/30/2020 1234 Previous diagnosis: Mild, Obstructive Sleep Apnea-Hypopnea Syndrome AHI: 7.8 (in 2019) Reason for follow up: three month Equipment type: CPAP Equipment obtained from: [employer] (getting supplies as able) Mask style: Nasal Backup mask available: No (will keep old mask when replaced) Last cushion change: she rotates several mask cushions daily Prior sleep studies: Yes Year and Where: 2019 - [facility] Sleep Type of Sleep Study: Home sleep study HPI additional information: VIKKI SCHNEIDER was diagnosed to have mild, AHI 7.8, obstructive sleep apnea- hypopnea syndrome and returned today for CPAP therapy three month follow-up. CPAP Compliance Data - Data Reviewed with Patient Average duration of nightly device use: 9 hr 17 minutes Compliance rate %: 98 (90 days) Current pressure setting (cmH2O): 7-13 Humidity settin Average residual AHI: 2.7 Subjective Patient concerns: reports: aerophagia (very little), mask leak noise (when turning). denies: mask discomfort, air blowing in eyes, nasal congestion, dry mouth, nose, throat, epistaxis, other Observed to snore while using device: No Current pressure setting perceived as: too high On therapy, patient: reports: sleeping better, awakening more refreshed, being more awake and alert during the day, more rested overall. denies: drowsiness while driving Initial [place] Sleepiness Scale score: 12 (in 2019) Current [place] Sleepiness Scale score: 6 Allergies and Home Medications Home medication list reviewed: Yes (Scopolamine for vertigo) Review of Systems Review of systems same as previous: Yes (no changes) Physical Exam Heart Rate: 67 O2 Saturation: 92 Height: 5 ft 5 in Weight: 170 lb Body Mass Index: 28.3 BMI Classification: Overweight Impression and Plan 1. Obstructive Sleep Apnea-Hypopnea Syndrome, mild, with excellent treatment compliance and good apnea control. On CPAP therapy, the patient has better sleep quality and is more rested overall. She is feeling like the pressure is too much and has some aerophagia/burping in the morning. To reduce symptoms of aerophagia, the CPAP pressure will be reduced to 9-11 cmH2O. Patient advised to contact me if this does not reduce symptoms or if pressure change uncomfortable. Patient's apnea severity and rationale for treatment to reduce apnea, improve sleep quality and reduce cardiovascular and cerebrovascular events was reviewed. I also reviewed the benefit of consistent device use of CPAP for hypertension, gastric reflux, and depression. * Change auto CPAP pressure to 9-11 cmH2O * Notify me if snoring with mask or feeling that the pressure is too much or too little * Attempt to lose weight * Call this office if any problems using CPAP * Return for follow up in 1-2 months, or sooner if concerns arise Counseling Topics: Spare mask, Weight loss health impact Visit Type: In Office Time Spent with Patient (minutes): 20 Provider Statement: I spent 100% of the Face to Face Visit with the patient with greater than 50% spent counseling the patient and coordination of care.
== END 2020-12-30 12:35 | disposition home or self-care (01) ==
LOC: SC 12:34
PROVIDERS: ATTEND Nurse Practitioner Family
DX: G47.33 Obstructive sleep apnea (adult) (pediatric) (principal); E66.3 Overweight; Z68.28 Body mass index [BMI] 28.0-28.9, adult
CPT/HCPCS: 99212; 99213

== ENCOUNTER 2021-02-09 14:27 | Outpatient (CLI) | payer MEDICAID ==
--- NOTE | 2021-02-09 14:52 | SLEEP CARE CONSULTATION ---
Information from patient questionnaire entered by Gayle Florez. I have reviewed and concur with the information entered by Gayle Florez. This document represents the service I personally performed and the decisions made by , Faiza Jones ARNP. History of Present Illness Service Date and Time: 02/09/2021 1420 Previous diagnosis: Mild, Obstructive Sleep Apnea-Hypopnea Syndrome AHI: 7.8 (in 2019) Reason for follow up: other (6 week with pressure change) Equipment type: CPAP Equipment obtained from: [employer] (getting supplies as able) Mask style: Nasal Mask brand: Resmed Backup mask available: Yes (old mask) Last cushion change: 2 days ago Prior sleep studies: Yes Year and Where: 2019 - [facility] Sleep Type of Sleep Study: Home sleep study HPI additional information: VIKKI SCHNEIDER was diagnosed to have mild, AHI 7.8, obstructive sleep apnea- hypopnea syndrome and returns via Telehealth visit today for CPAP therapy 6 week pressure change follow-up. CPAP Compliance Data - Data Reviewed with Patient Average duration of nightly device use: 8 hr 52 min Compliance rate %: 95 (42 days) Current pressure setting (cmH2O): 9-11 (median 10.4, avg 11.0) Humidity settin Average residual AHI: 2.7 Subjective Patient concerns: reports: mask leak noise (only when mouth open). denies: aerophagia, mask discomfort, air blowing in eyes, condensation in mask/hose, edmond al congestion, dry mouth, nose, throat, epistaxis, other Observed to snore while using device: No Current pressure setting perceived as: too high On therapy, patient: reports: sleeping better, awakening more refreshed, being more awake and alert during the day, more rested overall. denies: drowsiness while driving Initial [place] Sleepiness Scale score: 12 (in 2020) Current [place] Sleepiness Scale score: 5 Allergies and Home Medications Home medication list reviewed: Yes (no new meds) Review of Systems Review of systems same as previous: Yes (no changes) Physical Exam Vital signs obtained and entered by: Telehealth visit to reduce exposure during Covid pandemic Height: 5 ft 5 in Impression and Plan 1. Obstructive Sleep Apnea-Hypopnea Syndrome, mild, with good treatment compliance and good apnea control. On CPAP therapy, the patient has better sleep quality and is more rested overall. She feels like the pressure is too high. I will adjust pressure to 9-10 cmH2O and have her follow up in 1-2 months to recheck. She has tried the chinstrap but is still having trouble with mouth venting of air and her mouth coming open. I advised a wider chinstrap to cup the chin and help to keep mouth closed. I also discussed with her trying a full face mask but patient would like to wait until her insurance changes next month before trying to get more supplies. Patient's apnea severity and rationale for treatment to reduce apnea, improve sleep quality and reduce cardiovascular and cerebrovascular events was reviewed. I also reviewed the benefit of consistent device use of CPAP for hypertension, gastric reflux and depression. * Change auto CPAP pressure to 9-10 cmH2O * Notify me if snoring with mask or feeling that the pressure is too much or too little * Attempt to lose weight * Call this office if any problems using CPAP * Return for follow up in 1-2 months, or sooner if concerns arise Counseling Topics: Spare mask, Weight loss health impact Visit Type: Telehealth Video Video Type: VSee Patient Location: Home Location of Provider: Office Patient agrees and consents to this telehealth visit type: Yes Time Spent with Patient (minutes): 21 Provider Statement: I spent 100% of the Telehealth Video Call with the patient with greater than 50% spent counseling the patient and coordination of care.
== END 2021-02-09 14:28 | disposition home or self-care (01) ==
LOC: SC 14:27
PROVIDERS: ATTEND Nurse Practitioner Family
DX: G47.33 Obstructive sleep apnea (adult) (pediatric) (principal)

== ENCOUNTER 2021-03-23 15:29 | Outpatient (CLI) | payer MEDICAID ==
[2021-03-23 19:58] LABS: CALCIUM 9.5 mg/dL (8.5-10.3); CREATININE 0.7 mg/dL (0.4-1.0); POTASSIUM 3.9 mmol/L (3.5-5.0)
[2021-03-23 20:51] LABS: ESTIMATED AVERAGE GLUCOSE 123 mg/dL (70-100); HEMOGLOBIN A1c% 5.9 % (4.27-6.07)
== END 2021-03-23 15:30 | disposition home or self-care (01) ==
LOC: LAB.S 15:29
PROVIDERS: ATTEND Registered Nurse
DX: R73.03 Prediabetes (principal)
CPT/HCPCS: 36415; 80048; 83036

== ENCOUNTER 2021-04-13 14:00 | Outpatient (CLI) | payer MEDICAID ==
--- NOTE | 2021-04-13 14:15 | SLEEP CARE CONSULTATION ---
Information from patient questionnaire entered by Gayle Florez. I have reviewed and concur with the information entered by Gayle Florez. This document represents the service I personally performed and the decisions made by me, Faiza Jones ARNP. History of Present Illness Service Date and Time: 04/13/2021 1400 Previous diagnosis: Mild, Obstructive Sleep Apnea-Hypopnea Syndrome AHI: 7.8 (in 2019) Reason for follow up: other (2 month) Equipment type: CPAP Equipment obtained from: [employer] (getting supplies as needed) Mask style: Nasal pillows Backup mask available: Yes (old mask) Last cushion change: a while Prior sleep studies: Yes Year and Where: 2019 - [facility] Type of Sleep Study: Home sleep study HPI additional information: VIKKI SCHNEIDER was diagnosed to have mild, AHI 7.8, obstructive sleep apnea- hypopnea syndrome and returns via Telehealth visit today for CPAP therapy 2 month pressure change follow-up. CPAP Compliance Data - Data Reviewed with Patient Average duration of nightly device use: 8 hr 45 in Compliance rate %: 95 (60 days) Current pressure setting (cmH2O): 9-10 Humidity settin Average residual AHI: 1.8 Subjective Patient concerns: reports: mask leak noise, dry mouth, nose, throat (when mouth comes open), other (oral venting; chin didn't help). denies: aerophagia, mask discomfort, air blowing in eyes, condensation in mask/hose, nasal congestion, epistaxis Observed to snore while using device: No Current pressure setting perceived as: comfortable On therapy, patient: reports: sleeping better (more adequate sleep in less time), awakening more refreshed, being more awake and alert during the day, more rested overall. denies: drowsiness while driving Initial [place] Sleepiness Scale score: 12 (in 2020) Current [place] Sleepiness Scale score: 4 Allergies and Home Medications Drug allergies reviewed: Yes (NKDA) Home medication list reviewed: Yes (meloxicam for arthritis, haven't taken yet; off HCTZ) Review of Systems Review of systems same as previous: Yes (no changes) Physical Exam Vital signs obtained and entered by: Telehealth visit to reduce exposure during Covid pandemic Height: 5 ft 5 in Weight change since last visit: lost 40 pounds over last 1.5 year Impression and Plan 1. Obstructive Sleep Apnea-Hypopnea Syndrome, mild, with good treatment compliance and good apnea control. On CPAP therapy, the patient has better sleep quality and is more rested overall. Patient very satisfied with her current treatment since she is sleeping less and feeling rested. Her current pressure setting is comfortable. She feels a new mask is comfortable and working better for her. She just changed insurance and we will get that changed information from her upon checkout today. Patient has lost 40 pounds over the last year and a half due to changes that she made in her diet. She no longer needs her blood pressure medication and this was discontinued recently. Patient encouraged to continue to try to lose weight. Patient voiced understanding and agreement with plan of care. Patient's apnea severity and rationale for treatment to reduce apnea, improve sleep quality and reduce cardiovascular and cerebrovascular events was reviewed. I also reviewed the benefit of consistent device use of CPAP for hypertension, gastric reflux, and depression. * Continue auto CPAP pressure at 9-10 cmH2O * Notify me if snoring with mask or feeling that the pressure is too much or too little * Continue to try to lose weight * Call this office if any problems using CPAP * Return for follow up in 6 months, or sooner if concerns arise Counseling Topics: Spare mask, Weight loss health impact Visit Type: Telehealth Video Video Type: VSee Patient Location: Home Location of Provider: Office Patient agrees and consents to this telehealth visit type: Yes Patient agrees to have their insurance billed: Yes Time Spent with Patient (minutes): 17 Provider Statement: I spent 100% of the Telehealth Video Call with the patient with greater than 50% spent counseling the patient and coordination of care.
== END 2021-04-13 14:01 | disposition home or self-care (01) ==
LOC: SC 14:00
PROVIDERS: ATTEND Nurse Practitioner Family
DX: G47.33 Obstructive sleep apnea (adult) (pediatric) (principal)

== ENCOUNTER 2021-06-16 14:17 | Outpatient (CLI) | payer MEDICAID ==
[2021-06-16 20:02] LABS: BASOPHILS % (AUTO) 0.2 %; EOSINOPHILS # (AUTO) 0.4 10^3/uL (0.0-0.7); EOSINOPHILS % (AUTO) 5.8 %; HCT - HEMATOCRIT 44.1 % (37.0-47.0); HGB - HEMOGLOBIN 13.9 g/dL (12.0-16.0); LYMPHOCYTES # (AUTO) 2.1 10^3/uL (1.5-3.5); LYMPHOCYTES % (AUTO) 34.7 %; MEAN CORPUSCULAR HEMOGLOBIN 29.9 pg (27.0-31.0); MEAN CORPUSCULAR HGB CONC 31.5 g/dL (32.0-36.0); MEAN CORPUSCULAR VOLUME 94.8 fL (81.0-99.0); MEAN PLATELET VOLUME 9.7 fL (7.9-10.8); MONOCYTES # (AUTO) 0.3 10^3/uL (0.0-1.0); NEUTROPHILS # (AUTO) 3.3 10^3/uL (1.5-6.6); PLT - PLATELET COUNT 340 10^3/uL (130-450); RED BLOOD COUNT 4.65 10^6/uL (4.20-5.40); RED CELL DISTRIBUTION WIDTH 12.7 % (12.0-15.0)
[2021-06-16 20:19] LABS: ALBUMIN 4.4 g/dL (3.2-5.5); ALBUMIN/GLOBULIN RATIO 1.6 (1.0-2.2); ALKALINE PHOSPHATASE 102 IU/L (42-121); ALT ALANINE AMINOTRANSFERASE 40 IU/L (10-60); AST ASPARTATE AMINOTRANSFERASE 22 IU/L (10-42); BILIRUBIN,TOTAL 0.7 mg/dL (0.2-1.0); BUN - BLOOD UREA NITROGEN 14 mg/dL (6-20); CALCIUM 9.5 mg/dL (8.5-10.3); CARBON DIOXIDE - CO2 26 mmol/L (21-32); CHLORIDE 103 mmol/L (101-111); CHOL/HDL RATIO 3.1 (<4.4); CHOLESTEROL 118 mg/dL; CREATININE 0.7 mg/dL (0.4-1.0); GFR - MDRD 85 (>89); GLUCOSE 97 mg/dL (70-100); HDL CHOLESTEROL 38 mg/dL; LDL CHOLESTEROL,CALCULATED 51 mg/dL; LDL/HDL RATIO 1.3 (<4.4); POTASSIUM 4.1 mmol/L (3.5-5.0); SODIUM 137 mmol/L (135-145); TOTAL PROTEIN 7.2 g/dL (6.7-8.2); TRIGLYCERIDES 143 mg/dL; VLDL CHOLESTEROL 29 mg/dL
[2021-06-16 20:20] LABS: CREATININE,URINE 168.7 mg/dL; MICROALBUM/CREATININE RATIO,UR 2.4 ug/mg (<30.0); MICROALBUMIN,URINE 0.4 mg/dL (0-300.0)
[2021-06-16 20:32] LABS: THYROID STIMULATING HORMONE 1.93 uIU/mL (0.34-5.60)
[2021-06-16 21:23] LABS: ESTIMATED AVERAGE GLUCOSE 123 mg/dL (70-100); HEMOGLOBIN A1c% 5.9 % (4.27-6.07)
== END 2021-06-16 14:18 | disposition home or self-care (01) ==
LOC: LAB.S 14:17
PROVIDERS: ATTEND Registered Nurse
DX: G47.33 Obstructive sleep apnea (adult) (pediatric) (principal); R73.03 Prediabetes; R73.01 Impaired fasting glucose; E78.00 Pure hypercholesterolemia, unspecified; I10 Essential (primary) hypertension
CPT/HCPCS: 36415; 80050; 80061; 82043; 82570; 83036; 83721

== ENCOUNTER 2021-10-06 15:08 | Outpatient (CLI) | payer MEDICAID ==
[2021-10-06 20:06] LABS: BASOPHILS % (AUTO) 0.2 %; EOSINOPHILS # (AUTO) 0.5 10^3/uL (0.0-0.7); EOSINOPHILS % (AUTO) 8.2 %; HCT - HEMATOCRIT 37.8 % (37.0-47.0); HGB - HEMOGLOBIN 12.4 g/dL (12.0-16.0); LYMPHOCYTES # (AUTO) 2.3 10^3/uL (1.5-3.5); LYMPHOCYTES % (AUTO) 36.4 %; MEAN CORPUSCULAR HEMOGLOBIN 30.5 pg (27.0-31.0); MEAN CORPUSCULAR HGB CONC 32.8 g/dL (32.0-36.0); MEAN CORPUSCULAR VOLUME 92.9 fL (81.0-99.0); MEAN PLATELET VOLUME 9.4 fL (7.9-10.8); MONOCYTES # (AUTO) 0.3 10^3/uL (0.0-1.0); NEUTROPHILS # (AUTO) 3.2 10^3/uL (1.5-6.6); NEUTROPHILS % (AUTO) 49.9 %; PLT - PLATELET COUNT 305 10^3/uL (130-450); RED BLOOD COUNT 4.07 10^6/uL (4.20-5.40); RED CELL DISTRIBUTION WIDTH 12.8 % (12.0-15.0); WHITE BLOOD COUNT 6.4 x10^3/uL (4.8-10.8)
[2021-10-06 20:21] LABS: ALBUMIN 4.2 g/dL (3.2-5.5); ALBUMIN/GLOBULIN RATIO 1.5 (1.0-2.2); ALKALINE PHOSPHATASE 107 IU/L (42-121); ALT ALANINE AMINOTRANSFERASE 40 IU/L (10-60); AST ASPARTATE AMINOTRANSFERASE 24 IU/L (10-42); BILIRUBIN,TOTAL 0.8 mg/dL (0.2-1.0); BUN - BLOOD UREA NITROGEN 17 mg/dL (6-20); CALCIUM 9.5 mg/dL (8.5-10.3); CARBON DIOXIDE - CO2 26 mmol/L (21-32); CHLORIDE 103 mmol/L (101-111); CHOL/HDL RATIO 2.8 (<4.4); CHOLESTEROL 124 mg/dL; CREATININE 0.6 mg/dL (0.4-1.0); GFR - MDRD 101 (>89); GLUCOSE 94 mg/dL (70-100); HDL CHOLESTEROL 45 mg/dL; LDL CHOLESTEROL,CALCULATED 56 mg/dL; LDL/HDL RATIO 1.2 (<4.4); SODIUM 137 mmol/L (135-145); TRIGLYCERIDES 117 mg/dL; VLDL CHOLESTEROL 23 mg/dL
[2021-10-06 20:32] LABS: THYROID STIMULATING HORMONE 2.09 uIU/mL (0.34-5.60)
== END 2021-10-06 15:09 | disposition home or self-care (01) ==
LOC: LAB.S 15:08
PROVIDERS: ATTEND Registered Nurse
DX: I10 Essential (primary) hypertension (principal); H81.10 Benign paroxysmal vertigo, unspecified ear; F32.A Depression, unspecified; G47.33 Obstructive sleep apnea (adult) (pediatric); R73.03 Prediabetes; R73.01 Impaired fasting glucose; K21.9 Gastro-esophageal reflux disease without esophagitis; E78.00 Pure hypercholesterolemia, unspecified
CPT/HCPCS: 36415; 80050; 80061; 83721

== ENCOUNTER 2021-10-13 14:17 | Outpatient (CLI) | payer MEDICAID ==
[2021-10-13 14:57] VITALS: BP 112/67
--- NOTE | 2021-10-13 14:57 | SLEEP CARE CONSULTATION ---
Information from patient questionnaire entered by Gudelia Murray MA. I have reviewed and concur with the information entered by Gudelia Murray MA. This document represents the service I personally performed and the decisions made by , Faiza Jones ARNP. History of Present Illness Service Date and Time: 10/13/2021 1417 Previous diagnosis: Mild, Obstructive Sleep Apnea-Hypopnea Syndrome AHI: 7.8 (in 2019) Reason for follow up: six month Equipment type: CPAP Equipment obtained from: [employer] (getting supplies as needed) Mask style: Nasal pillows Backup mask available: Yes (old mask) Last cushion change: 1 week ago Prior sleep studies: Yes Year and Where: 2019 - [facility] Type of Sleep Study: Home sleep study HPI additional information: VIKKI SCHNEIDER was diagnosed to have mild, AHI 7.8, obstructive sleep apnea- hypopnea syndrome and returned today for CPAP therapy six month follow-up. Sleep Study - Results Type of Sleep Study: Home sleep study Prior sleep studies: Yes Year and Where: 2019 - [facility] CPAP Compliance Data - Data Reviewed with Patient Average duration of nightly device use: 8 HOURS 27 MINUTES Compliance rate %: 91 Current pressure setting (cmH2O): 9-10 Average residual AHI: 1.5 Central apnea: 1.1 Obstructive apnea: 0.2 Average large leak: 15.2 Subjective Missed days of use due to: reports: other (power outages) Patient concerns: reports: nasal congestion (ongoing PND), dry mouth, nose, throat. 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) Initial [place] Sleepiness Scale score: 12 (in 2019) Current [place] Sleepiness Scale score: 6 (2021) Allergies and Home Medications Known drug allergies: No Drug allergies reviewed: Yes (scopolomine - skin rash (eczema)) Home medication list reviewed: Yes Physical Exam Vital signs obtained and entered by: Margret MURRAY CMA AAMA Blood Pressure: 112/67 (LEFT, PULSE 77) Heart Rate: 76 O2 Saturation: 98 (WITH N95) Height: 5 ft 5 in Weight: 160 lb (WITH CLOTHES) Weight change since last visit: 20 lb loss since last December Body Mass Index: 26.6 BMI Classification: Overweight Impression and Plan 1. Obstructive Sleep Apnea-Hypopnea Syndrome, mild, with good treatment compliance and good apnea control. On CPAP therapy, the patient has better sleep quality and is more rested overall. She change her diet to complement what her partner had to do after bariatric surgery and she started to lose weight. Patient has lost about 40 pounds over the last year and would like to be re- evaluated to see if she still needs to use a CPAP. I will order a home study and follow up with her after the sleep study is completed. Patient's apnea severity and rationale for treatment to reduce apnea, improve sleep quality and reduce cardiovascular and cerebrovascular events was reviewed. I also reviewed the benefit of consistent device use of CPAP for hypertension, gastric reflux and depression. * Continue auto CPAP pressure at 9-10 cmH2O * HST * Notify me if snoring with mask or feeling that the pressure is too much or too little * Continue to try to lose weight * Call this office if any problems using CPAP * Return for follow up after the sleep study is completed, or sooner if concerns arise Counseling Topics: Spare mask, Weight loss health impact Visit Type: In Office Time Spent with Patient (minutes): 20 Provider Statement: I spent 100% of the Face to Face Visit with the patient with greater than 50% spent counseling the patient and coordination of care.
== END 2021-10-13 14:18 | disposition home or self-care (01) ==
LOC: SC 14:17
PROVIDERS: ATTEND Nurse Practitioner Family
DX: G47.33 Obstructive sleep apnea (adult) (pediatric) (principal)
CPT/HCPCS: 99212; 99213

== ENCOUNTER 2021-10-19 15:01 | Outpatient (CLI) | payer MEDICAID | END 2021-10-19 15:02 | disposition home or self-care (01) | LOC: SC 15:01 | PROVIDERS: ATTEND Nurse Practitioner Family | DX: G47.33 Obstructive sleep apnea (adult) (pediatric) (principal) | CPT/HCPCS: 95806 ==

== ENCOUNTER 2021-11-09 13:43 | Outpatient (CLI) | payer MEDICAID ==
--- NOTE | 2021-11-09 14:25 | SLEEP CARE CONSULTATION ---
Information from patient questionnaire entered by Gudelia Murray MA. I have reviewed and concur with the information entered by Gudelia Murray MA. This document represents the service I personally performed and the decisions made by , Faiza Jones ARNP. History of Present Illness Service Date and Time: 11/09/2021 1343 Initial [place] Sleepiness Scale score: 12 (in 2019) Current [place] Sleepiness Scale score: 4 (2021) Additional HPI information: VIKKI SCHNEIDER returns for follow up and results of the recently performed home sleep study. The patient was informed of the following findings: No significant sleep disordered breathing with an average AHI of 2.4 and nick oxygen saturation of 90%. Patient did not sleep supine during the study so supine sleep disordered breathing cannot be ruled out. I explained the pathophysiology behind obstructive sleep apnea. Patient does not have sleep apnea and was advised how weight gain could increase the risk of developing sleep apnea in the future. I strongly encouraged the patient to try to lose weight. Patient has light snoring. Snoring can be reduced by weight loss. Weight loss is best achieved with diet consult. Patient instructed to contact PCP for referral. Snoring can also be treated with an oral appliance from a dentist. Advised to check insurance coverage. In addition, an ENT evaluation can be do to see if other treatment is indicated. Patient does not drink alcohol. Patient was cautioned about risks of drowsy driving until sleepiness symptoms resolve. Patient denies drowsy driving. Sleep Study - Results Type of Sleep Study: Home sleep study (F/U HOMESTUDY) Prior sleep studies: Yes Year and Where: 2019 - [facility] Polysom[facility]/Home Sleep Study results: Physician Impression: The quality of the study is good. The length of the study is adequate (> 240 minutes). Please also see the tabulated and graphic data. 1. No significant sleep disordered breathing, with an AHI of 2.4/hr and nick SaO2 of 90%. During the study, the patient had 9 apneas (9 obstructive, 0 central, 0 mixed) and 15 hypopneas. The longest episode lasted 153.5 seconds. The patient did not sleep supine during this study (supine AHI was 0.0 and non-supine, 2.51). Recommendation: No treatment is necessary. However, because the patient did not sleep supine during this study, significant sleep disordered breathing during supine sleep cannot be ruled out. If the suspicion for sleep-disordered breathing remains high, an in-laboratory polysomnography should be ordered. Allergies and Home Medications Known drug allergies: Yes Drug allergies reviewed: Yes Home medication list reviewed: Yes (no changes) Allergy and home medication list: Allergies No Known Drug Allergies Allergy (Verified 10/10/16 13:45) Review of Systems Review of systems same as previous: Yes (no changes) Physical Exam Vital signs obtained and entered by: Margret MURRAY CMA AASHERMAN Blood Pressure: 129/83 (RIGHT, 67 PULSE, RESP 14, ) Heart Rate: 66 O2 Saturation: 98 (N95 MASK) Height: 5 ft 5 in Weight: 164 lb (W/O CLOTHES) Weight change since last visit: 4 lb gain Body Mass Index: 27.3 BMI Classification: Overweight Impression and Plan 1. Obstructive Sleep Apnea-Hypopnea Syndrome, mild. On CPAP therapy, the patient has better sleep quality and is more rested overall. Patient here for follow-up of home study to recheck average AHI. Her average AHI was 2.4 but she did not sleep supine during the study. After much discussion, patient would like to continue with her CPAP since we do not have a measurement of her on her back. I discussed with her compliance requirements and reviewed with her that she should sleep on her side if she is not using her CPAP. Patient is requesting a little less pressure on her CPAP. I will adjust it to 8-9 cmH2O for patient comfort. I reviewed her last therapy report which showed residual AHI of 1.5 with pressure set at 9-10 cmH2O. Patient's apnea severity and rationale for treatment to reduce apnea, improve sleep quality and reduce cardiovascular and cerebrovascular events was reviewed. I also reviewed the benefit of consistent device use of CPAP for hypertension, gastric reflux and depression. 2. Overweight, unspecified. Patient has gained weight. Currently patients BMI is 27.3. Obesity increases the risk of apnea, CPAP pressure requirements and overall health risks especially cardiovascular and diabetes. Thus patient is advised to continue to try to lose weight. Weight loss can be done with reducing portion size, reducing refined foods and balancing content with vegetables, fruit and whole grain foods. In addition, patient encouraged to get regular exercise. The patient's CPAP pressure range should accommodate some weight loss. Symptoms to report for additional pressure adjustment discussed. * Continue CPAP therapy * Change auto CPAP pressure to 8-9 cmH2O * Notify me if snoring with mask or feeling that the pressure is too much or too little * Continue to try to lose weight * Call this office if any problems using CPAP * Return for follow up in 1 year, or sooner if concerns arise Counseling Topics: Sleeping position, Weight loss health impact, Weight control Visit Type: In Office Time Spent with Patient (minutes): 21 Provider Statement: I spent 100% of the Face to Face Visit with the patient with greater than 50% spent counseling the patient and coordination of care.
[2021-11-09 14:26] VITALS: BP 129/83
== END 2021-11-09 13:44 | disposition home or self-care (01) ==
LOC: SC 13:43
PROVIDERS: ATTEND Nurse Practitioner Family
DX: G47.33 Obstructive sleep apnea (adult) (pediatric) (principal); E66.3 Overweight
CPT/HCPCS: 99212; 99213

== ENCOUNTER 2022-03-17 09:40 | Outpatient (CLI) | payer OTHER ==
--- NOTE | 2022-03-17 10:26 | XRAY Report ---
PROCEDURE: Lumbar Spine 2 View INDICATIONS: LOW BACK PAIN TECHNIQUE: 2 views of the lumbar spine were acquired. COMPARISON: None. FINDINGS: Bones: 5 [id number] vertebrae are present. There is normal bony alignment. There are multilev el degenerative changes. Facet arthrosis throughout the lumbar spine. Grade 1 anterolisthesis of L4-5 and L5-S1. Sacroiliac joints are normal. Mild leftward curvature of the thoracolumbar spine with the apex at L1. [place] angle is 6 degrees. No vertebral body compression fractures. No suspicious bony le sions. Soft tissues: Overlying bowel gas pattern is normal. No suspicious soft tissue calcifications. IMPRESSION: 1. Facet arthrosis and degenerative changes of the lumbar spine with grade 1 anterolisthesis of L4-5 and L5-S1. 2. No acute traumatic abnormality. Line 3. Leftward curvature of the thoracolumbar spine with the apex at L1. Reviewed by: Francisco Lockett on 03/17/2022 10:24 AM PDT Approved by: Francisco Lockett on 03/17/2022 10:24 AM PDT Station ID: [id number]
== END 2022-03-17 09:41 | disposition home or self-care (01) ==
LOC: DI 09:40
PROVIDERS: ATTEND Internal Medicine Cardiovascular Disease
DX: M47.816 Spondylosis without myelopathy or radiculopathy, lumbar region (principal); M43.16 Spondylolisthesis, lumbar region; M43.17 Spondylolisthesis, lumbosacral region

== ENCOUNTER 2022-10-27 14:13 | Outpatient (CLI) | payer MEDICARE ==
[2022-10-27 15:09] VITALS: BP 120/70
--- NOTE | 2022-10-27 15:09 | SLEEP CARE CONSULTATION ---
Information from patient questionnaire entered by Sid Yanes. I have reviewed and concur with the information entered by Sid Yanes. This document represents the service I personally performed and the decisions made by me, Faiza Jones ARNP. History of Present Illness Service Date and Time: 10/27/2022 1413 Previous diagnosis: Mild, Obstructive Sleep Apnea-Hypopnea Syndrome AHI: 7.8 (in 2019) Reason for follow up: annual (LAST SEEN 10/2021) Equipment type: CPAP (ResMed Airsense 10 s/u 06/2020) Equipment obtained from: [employer] (getting supplies as needed) Mask style: Nasal Mask brand: Resmed (AirFit N20, borrowed from s/o and likes better) Backup mask available: Yes (old mask) Prior sleep studies: Yes Year and Where: 2019 - [facility] Type of Sleep Study: Home sleep study (F/U HOMESTUDY) HPI additional information: VIKKI SCHNEIDER was diagnosed to have mild, AHI 7.8, obstructive sleep apnea- hypopnea syndrome and returned today for CPAP therapy annual follow-up. Sleep Study - Results Type of Sleep Study: Home sleep study (F/U HOMESTUDY) Prior sleep studies: Yes [facility] Compliance Data - Data Reviewed with Patient Average duration of nightly device use: 8 HRS 43 MIN Compliance rate %: 97 (04/29/22-10/25/22; 176/180 days used) Current pressure setting (cmH2O): 8-9 Average residual AHI: 1.2 Central apnea: 0.6 Obstructive apnea: 0.3 Subjective Missed days of use due to: reports: other (power outage; appointment next day and has insomnia) Patient concerns: reports: dry mouth, nose, throat (dry mouth a couple times a week), other (slight headaches, regularly). denies: aerophagia, mask discomfort, air blowing in eyes, mask leak noise, condensation in mask/hose, nasal congestion, epistaxis Observed to snore while using device: No Current pressure setting perceived as: comfortable On therapy, patient: reports: sleeping better (but overall she is not aware of other improvements due to life stressors). denies: drowsiness while driving Initial [place] Sleepiness Scale score: 12 (in 2019) Current [place] Sleepiness Scale score: 7 (10/27/22) Allergies and Home Medications Drug allergies reviewed: Yes (NKDA) Home medication list reviewed: Yes (no changes) Review of Systems Review of systems same as previous: Yes (no changes) Physical Exam Vital signs obtained and entered by: SID Clifford MA Blood Pressure: 120/70 (LEFT ARM) Cuff size: regular Heart Rate: 77 O2 Saturation: 98 Height: 5 ft 5 in Weight: 184 lb 6.4 oz Body Mass Index: 30.7 BMI Classification: Obese Impression and Plan 1. Obstructive Sleep Apnea-Hypopnea Syndrome, mild, with good treatment compliance and good apnea control. On CPAP therapy, the patient has better sleep quality and is more rested overall. Patient had been using a nasal mask. She borrowed a ResMed N20 mask from her boyfriend and she likes it much better. She would like to change to this mask. I will add this to her prescription for updating her supplies.Patient has significant improvement of their sleep apnea and are satisfied with current CPAP therapy. Patient denies problems with oral dryness, nasal congestion, epistaxis, skin irritation or aerophagia. Patient's apnea severity and rationale for treatment to reduce apnea, improve sleep quality and reduce cardiovascular and cerebrovascular events was reviewed. I also reviewed the benefit of consistent device use of CPAP for hypertension, gastric reflux and depression. 2. Obesity, unspecified. Currently patients BMI is 30.7. Obesity increases the risk of apnea, CPAP pressure requirements and overall health risks especially cardiovascular and diabetes. Thus patient is advised to lose weight. * Continue auto CPAP pressure at 8-9 cmH2O * Update supplies * Notify me if snoring with mask or feeling that the pressure is too much or too little * Attempt to lose weight * Call this office if any problems using CPAP * Return for follow up in 1 year, or sooner if concerns arise Counseling Topics: Spare mask, Weight loss health impact Visit Type: In Office Time Spent with Patient (minutes): 26 Provider Statement: I spent 100% of the Face to Face Visit with the patient with greater than 50% spent counseling the patient and coordination of care.
== END 2022-10-27 14:14 | disposition home or self-care (01) ==
LOC: SC 14:13
PROVIDERS: ATTEND Nurse Practitioner Family
DX: G47.33 Obstructive sleep apnea (adult) (pediatric) (principal); E66.9 Obesity, unspecified; Z68.30 Body mass index [BMI] 30.0-30.9, adult
CPT/HCPCS: 99213; G0463; 99212

== ENCOUNTER 2023-10-23 14:08 | Outpatient (CLI) | payer MEDICARE ==
--- NOTE | 2023-10-23 19:13 | XRAY Report ---
PROCEDURE: Shoulder 2+V RT INDICATIONS: SHOULDER PAIN TECHNIQUE: 3 views of the shoulder were acquired. COMPARISON: None FINDINGS: Bones: No fractures or dislocations. No suspicious bony lesions. Visualized ribs appear intact. Soft tissues: No suspicious soft tissue calcifications. IMPRESSION: Unremarkable shoulder radiographs Reviewed by: Denzel Ordoñez MD on 10/23/2023 6:12 PM [place] Approved by: Denzel Ordoñez MD on 10/23/2023 6:12 PM [place] Station ID: [id number]
== END 2023-10-23 14:09 | disposition home or self-care (01) ==
LOC: DI 14:08
PROVIDERS: ATTEND Internal Medicine
DX: M25.511 Pain in right shoulder (principal)

== ENCOUNTER 2023-11-03 13:46 | Outpatient (CLI) | payer MEDICARE ==
--- NOTE | 2023-11-03 14:17 | Sleep Patient Instructions ---
Sleep Center Visit Summary - Patient Visit Information Reason for Visit: Annual follow-up - Patient Instructions Additional Instructions: You will continue with CPAP therapy with pressure set at 8-9 cmH2O. A supply prescription will be updated with your DME. We encourage you to continue to try to lose weight. Please follow up with the sleep care office in 1 year. - Clinic Information Contact: [facility] [address] [place] [address] [email or web address] T: [phone]
[2023-11-03 14:23] VITALS: BP 117/79; O2SAT 99
--- NOTE | 2023-11-03 14:23 | SLEEP CARE CONSULTATION ---
Information from patient questionnaire entered by Sid Yanes. I have reviewed and concur with the information entered by Sid Yanes. This document represents the service I personally performed and the decisions made by me, Faiza Jones ARNP. History of Present Illness Service Date and Time: 11/03/2023 1346 Previous diagnosis: Mild, Obstructive Sleep Apnea-Hypopnea Syndrome AHI: 7.8 (in 2019) Reason for follow up: annual (LAST SEEN 10/2022) Equipment type: CPAP (ResMed Airsense 10 s/u 06/2020) Equipment obtained from: [employer] (getting supplies as needed) Mask style: Nasal Mask brand: Resmed (Airfit N20, small cushion) Backup mask available: Yes Last cushion change: over a month Prior sleep studies: Yes Year and [facility] Type of Sleep Study: Home sleep study (F/U HOMESTUDY) HPI additional information: VIKKI SCHNEIDER was diagnosed to have mild, AHI 7.8, obstructive sleep apnea- hypopnea syndrome and returned today for CPAP therapy annual follow-up. Sleep Study - Results Type of Sleep Study: Home sleep study (F/U HOMESTUDY) Prior sleep studies: Yes Year and Where: 2019 - [facility] CPAP Compliance Data - Data Reviewed with Patient Average duration of nightly device use: 8 HRS 8 MINS Compliance rate %: 93 (11/01/22-10/31/23; 355-365 days used) Current pressure setting (cmH2O): 8-9 Average residual AHI: 1.0 Central apnea: 0.5 Obstructive apnea: 0.3 Average large leak: 3.5 L/min Subjective Missed days of use due to: reports: other (forgot to put mask on; power outages) Patient concerns: reports: air blowing in eyes, mask leak noise (active sleeper, moves a lot), dry mouth, nose, throat (sometimes dry nose, sometimes dry throat). denies: aerophagia, mask discomfort, condensation in mask/hose, nasal congestion, epistaxis Observed to snore while using device: No Current pressure setting perceived as: comfortable On therapy, patient: reports: sleeping better, awakening more refreshed, being more awake and alert during the day, more rested overall. denies: drowsiness while driving Initial [place] Sleepiness Scale score: 12 (in 2020) Current [place] Sleepiness Scale score: 4 (11/03/23) Allergies and Home Medications Known drug allergies: No Drug allergies reviewed: Yes Home medication list reviewed: Yes (Wellbutrin) Allergy and home medication list: Allergies No Known Drug Allergies Allergy (Verified 11/01/23 13:15) Review of Systems Review of systems same as previous: No (NO CHANGE) Physical Exam Vital signs obtained and entered by: SID Clifford MA Blood Pressure: 117/79 (RIGHT ARM) Cuff size: regular Heart Rate: 72 O2 Saturation: 99 Height: 5 ft 5 in Weight: 180 lb Body Mass Index: 29.9 BMI Classification: Overweight Impression and Plan 1. Obstructive Sleep Apnea-Hypopnea Syndrome, mild, with good treatment compliance and good apnea control. On CPAP therapy, the patient has better sleep quality and is more rested overall. Patient has significant improvement of their sleep apnea and is satisfied with current CPAP therapy. Patient's apnea severity and rationale for treatment to reduce apnea, improve sleep quality and reduce cardiovascular and cerebrovascular events was reviewed. I also reviewed the benefit of consistent device use of CPAP for hypertension, depression and gastric reflux. 2. Overweight, unspecified. Currently patients BMI is 29.9. Obesity increases the risk of apnea, CPAP pressure requirements and overall health risks especially cardiovascular and diabetes. Thus patient is advised to lose weight. * Continue auto CPAP pressure at 8-9 cmH2O * Update supply prescription * Notify me if snoring with mask or feeling that the pressure is too much or too little * Attempt to lose weight * Call this office if any problems using CPAP * Return for follow up in 12 months, or sooner if concerns arise Counseling Topics: Spare mask, Weight loss health impact Prescriptions: Device supplies Follow up with Sleep Care in: 1 year Visit Type: In Office Time Spent with Patient (minutes): 20 Provider Statement: I spent 100% of the Face to Face Visit with the patient with greater than 50% spent counseling the patient and coordination of care.
== END 2023-11-03 13:47 | disposition home or self-care (01) ==
LOC: SC 13:46
PROVIDERS: ATTEND Nurse Practitioner Family
DX: G47.33 Obstructive sleep apnea (adult) (pediatric) (principal); E66.3 Overweight; Z68.29 Body mass index [BMI] 29.0-29.9, adult
CPT/HCPCS: 99213; G0463; 99212